=== PATIENT | male | born 1970 | race Two or more races ===

== ENCOUNTER 2016-09-22 16:15 | Emergency (ER) | payer OTHER ==
[2016-09-22 16:25] VITALS: BP 134/80
== END 2016-09-22 19:28 | disposition left against medical advice (07) ==
LOC: ER 16:15
DX: Z53.9 Procedure and treatment not carried out, unspecified reason (principal)

== ENCOUNTER 2019-11-21 16:41 | Emergency (ER) | payer SELFPAY ==
[2019-11-21] MEDS ORDERED: NORMAL SALINE 1000 ML 1,000 ML IV ONE (16:56)
--- NOTE | 2019-11-21 16:58 | ER Document Report ---
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 Denies any chest pain, shortness of breath, fevers, vomiting. History of this previously. Patient states he attempted to rehydrate with Pedialyte. ROS: See HPI All other review of systems reviewed and otherwise negative Reviewed vital signs and nursing note as charted by RN. PHYSICAL EXAM: CONSTITUTIONAL: Alert and oriented and responds appropriately to questions. Well-appearing; well-nourished HEAD: Normocephalic; atraumatic EYES: Sclerae non-icteric ENT: Normal nose; no rhinorrhea; moist mucous membranes; pharynx without lesions noted NECK: Supple without meningismus; non-tender CARD: Regular rate and rhythm; no murmurs; symmetric distal pulses RESP: Normal chest excursion without splinting or tachypnea; breath sounds clear and equal bilaterally; no wheezes, no rhonchi, no rales ABD/GI: Normal bowel sounds; non-distended; soft, non-tender; no palpable organomegaly or masses BACK: The back appears normal and is non-tender to palpation EXT: Normal ROM in all joints; non-tender to palpation; no edema; no obvious tetany or fasciculations SKIN: No acute lesions noted; skin is moist and not dry NEURO: CN 2-12 intact; 5/5 bilateral upper and lower extremity strength with sen sation intact to light touch PSYCH: The patient's mood and manner are appropriate. Grooming and personal hygiene are appropriate. TRAVEL OUTSIDE OF THE [place] IN LAST 30 DAYS: No - Related Data Allergies/Adverse Reactions: No Known Allergies Allergy (Verified 10/16/14 14:02) Past Medical History - Social History Smoking Status: Unknown if Ever Smoked Family History: Reviewed & Not Pertinent Renal/ Medical History: Denies: Hx Peritoneal Dialysis - Immunizations Hx Diphtheria, Pertussis, Tetanus Vaccination: Yes Physical Exam - Vital signs Vitals: Temp Pulse Resp BP Pulse Ox 97.6 F 84 15 139/91 H 100 11/21/19 16:42 11/21/19 16:42 11/21/19 16:42 11/21/19 16:42 11/21/19 16:42 Course - Re-evaluation Re-evalutation: 11/21/19 16:58 Given the above history and physical, we will obtain a chemistry, electrolytes, magnesium level, total CK, provide fluids, and reassess. I am concerned about the possibility of dehydration, rhabdomyolysis, and electrolyte abnormalities. 11/21/19 17:42 Labs as recorded. 2 L of fluid has been provided. Fasciculations have improved. Vital signs are stable. After 2 L of fluid I believe it is reasonable to discharge the patient home. Patient understands the importance of limited alcohol, limited caffeine, staying out of the heat, excessive hydration with electrolytes. I have requested that the patient refrain from working outside for the next 2 days. He understands my request. - Vital Signs Vital signs: Temp Pulse Resp BP Pulse Ox 97.6 F 84 15 139/91 H 100 11/21/19 16:42 11/21/19 16:42 11/21/19 16:42 11/21/19 16:42 11/21/19 16:42 - Laboratory Result Diagrams: 11/21/19 16:56 11/21/19 16:56 Laboratory results interpreted by me: 11/21/19 11/21/19 16:56 16:56 WBC 10.9 H Absolute Neuts (auto) 8.4 H Sodium 130.7 L Chloride 93 L BUN 21 H Creatinine 1.41 H Est GFR (MDRD) Non-Af 54 L Glucose 119 H Creatine Kinase 445 H Discharge - Discharge Clinical Impression: Dehydration after exertion Condition: Good Disposition: HOME, SELF-CARE Additional Instructions: Please make sure that you drink plenty of fluids. Please make sure that you refrain from working in the heat for the next 2 days as discussed. Come back immediately for any worsening muscle cramps, fever, vomiting, abdominal pain, weakness or numbness, or any other acute problems. Please limit any alcohol, caffeine, and drink electrolyte rich fluids. Forms: Return to Work
[2019-11-21 17:17] LABS: ABSOLUTE EOSINOPHILS # (AUTO) 0.1 10^3/uL (0.0-0.6); ABSOLUTE LYMPHOCYTES (AUTO) 1.8 10^3/uL (0.5-4.7); ABSOLUTE MONOCYTES (AUTO) 0.6 10^3/uL (0.1-1.4); ABSOLUTE NEUT (AUTO) 8.4 10^3/uL (1.7-8.2); BASOPHILS % (AUTO) 0.4 % (0-2); EOSINOPHILS % (AUTO) 0.8 % (0-6); HEMATOCRIT 43.4 % (37.9-51.0); HEMOGLOBIN 15.2 g/dL (13.5-17.0); LYMPHOCYTES % (AUTO) 16.2 % (13-45); MEAN CORPUSCULAR HEMOGLOBIN 33.3 pg (27.0-33.4); MEAN CORPUSCULAR VOLUME 95 fl (80-97); MONOCYTES % (AUTO) 5.9 % (3-13); PLATELET COUNT 229 10^3/uL (150-450); RED BLOOD COUNT 4.56 10^6/uL (4.35-5.55); RED CELL DISTRIBUTION WIDTH 12.4 % (11.5-14.0); SEGMENTED NEUTROPHILS % (AUTO) 76.7 % (42-78); TOTAL CELLS COUNTED % (AUTO) 100 %; WHITE BLOOD COUNT 10.9 10^3/uL (4.0-10.5)
[2019-11-21 17:31] LABS: ALBUMIN 4.7 g/dL (3.5-5.0); ALKALINE PHOSPHATASE 74 U/L (38-126); ANION GAP 14 (5-19); ASPARTATE AMINO TRANSFERASE 43 U/L (17-59); BILIRUBIN,DIRECT 0.4 mg/dL (0.0-0.4); BILIRUBIN,TOTAL 0.7 mg/dL (0.2-1.3); BLOOD UREA NITROGEN 21 mg/dL (7-20); CALCIUM 9.9 mg/dL (8.4-10.2); CARBON DIOXIDE 24 mmol/L (22-30); CHLORIDE 93 mmol/L (98-107); CREATINE KINASE 445 U/L (55-170); GLUCOSE 119 mg/dL (75-110); POTASSIUM 4.4 mmol/L (3.6-5.0); TOTAL PROTEIN 7.7 g/dL (6.3-8.2)
[2019-11-21 19:09] VITALS: BP 139/83
== END 2019-11-21 19:09 | disposition home or self-care (01) ==
LOC: ER 16:41
DX: E86.0 Dehydration (principal); M79.10 Myalgia, unspecified site
CPT/HCPCS: 99284; 96360; 96361; 36415; 82550; 83735; 85025; 80053; J7030

== ENCOUNTER 2019-12-05 09:15 | Emergency (ER) | payer SELFPAY ==
[2019-12-05 09:30] VITALS: BP 143/83
[2019-12-05 10:06] LABS: ABSOLUTE EOSINOPHILS # (AUTO) 0.2 10^3/uL (0.0-0.6); ABSOLUTE LYMPHOCYTES (AUTO) 1.7 10^3/uL (0.5-4.7); ABSOLUTE MONOCYTES (AUTO) 0.7 10^3/uL (0.1-1.4); ABSOLUTE NEUT (AUTO) 4.2 10^3/uL (1.7-8.2); BASOPHILS % (AUTO) 0.6 % (0-2); HEMATOCRIT 43.6 % (37.9-51.0); HEMOGLOBIN 15.7 g/dL (13.5-17.0); MEAN CORPUSCULAR HEMOGLOBIN 34.2 pg (27.0-33.4); MEAN CORPUSCULAR HGB CONC 35.9 g/dL (32.0-36.0); MEAN CORPUSCULAR VOLUME 95 fl (80-97); MONOCYTES % (AUTO) 10.3 % (3-13); PLATELET COUNT 249 10^3/uL (150-450); RED BLOOD COUNT 4.58 10^6/uL (4.35-5.55); RED CELL DISTRIBUTION WIDTH 12.7 % (11.5-14.0); SEGMENTED NEUTROPHILS % (AUTO) 61.1 % (42-78); TOTAL CELLS COUNTED % (AUTO) 100 %; WHITE BLOOD COUNT 6.8 10^3/uL (4.0-10.5)
--- NOTE | 2019-12-05 10:22 | ER Document Report ---
Entered by PAUL CLARK SCRIBE 12/05/19 1002 Acting as scribe for:CASSIE COLMENARES MD ED General - General Stated Complaint: CHEST,BACK PAIN Time Seen by Provider: 12/05/19 09:58 Mode of Arrival: Ambulatory Information source: Patient Notes: This 49 year old male patient with no significant past medical history presents to the ED today with complaints of left-sided chest pain that started around 0700 this morning while he was making coffee. Patient states that the pain was sharp in nature and radiates to his left shoulder and back. Pain is exacerbated with inspiration and turning his neck. Denies any nausea or diaphoresis. TRAVEL OUTSIDE OF THE [place] IN LAST 30 DAYS: No - Related Data Allergies/Adverse Reactions: No Known Allergies Allergy (Verified 10/16/14 14:02) Past Medical History - General Information source: Patient - Social History Smoking Status: Never Smoker Cigarette use (# per day): No Chew tobacco use (# tins/day): No Smoking Education Provided: No Frequency of alcohol use: Occasional Drug Abuse: None Lives with: Spouse/Significant other Family History: Reviewed & Not Pertinent Patient has suicidal ideation: No Patient has homicidal ideation: No Past Surgical History: Reports: Other - Left retinal scar tissue removal in 2010, right corneal repair as a kid - Immunizations Hx Diphtheria, Pertussis, Tetanus Vaccination: Yes Review of Systems - Review of Systems Constitutional: See HPI. denies: Diaphoresis EENT: No symptoms reported Cardiovascular: See HPI, Chest pain Respiratory: No symptoms reported Gastrointestinal: See HPI. denies: Nausea Genitourinary: No symptoms reported Male Genitourinary: No symptoms reported Musculoskeletal: See HPI, Back pain, Joint pain Skin: No symptoms reported Hematologic/Lymphatic: No symptoms reported Neurological/Psychological: No symptoms reported -: Yes All other systems reviewed and negative Physical Exam - Vital signs Vitals: Temp Pulse Resp BP Pulse Ox 98.4 F 73 18 143/83 H 97 12/05/19 09:25 12/05/19 09:25 12/05/19 09:25 12/05/19 09:25 12/05/19 09:25 - General General appearance: Appears well, Alert In distress: None - HEENT Head: Normocephalic, Atraumatic Eyes: Normal Pupils: PERRL - Respiratory Respiratory status: No respiratory distress Chest status: Nontender Breath sounds: Normal Chest palpation: Normal - Cardiovascular Rhythm: Regular Heart sounds: Normal auscultation Murmur: No Friction rub: No Gallop: None auscultated - Abdominal Inspection: Normal Distension: No distension Bowel sounds: Normal Tenderness: Nontender - Abdomen soft Organomegaly: No organomegaly - Back Back: Normal, Nontender - Extremities General upper extremity: Normal inspection General lower extremity: Normal inspection. No: Edema - Neurological Neuro grossly intact: Yes - Psychological Associated symptoms: Normal affect, Normal mood - Skin Skin Temperature: Warm Skin Moisture: Dry Skin Color: Normal Course - Re-evaluation Re-evalutation: 12/05/19 13:06 Patient was complaining of a pleuritic type left-sided chest pain and the d- dimer was only slightly below the cutoff for positive. CTA chest was done and is negative. Second troponin is pending at this time. - Vital Signs Vital signs: Temp Pulse Resp BP Pulse Ox 98.1 F 73 18 143/83 H 97 12/05/19 10:01 12/05/19 09:25 12/05/19 09:25 12/05/19 09:25 12/05/19 10:04 - Laboratory Result Diagrams: 12/05/19 09:59 12/05/19 09:59 Laboratory results interpreted by me: 12/05/19 12/05/19 12/05/19 09:59 09:59 09:59 MCH 34.2 H BUN 26 H Creatine Kinase 459 H CK-MB (CK-2) 4.68 H - Diagnostic Test Radiology reviewed: Image reviewed, Reports reviewed - EKG Interpretation by Ut EKG shows normal: Sinus rhythm, Stryker, Intervals, QRS Complexes, ST-T Waves Rate: Normal - 71 Rhythm: NSR Discharge - Discharge Clinical Impression: Muscular chest pain, Renal insufficiency, mild, Elevated blood pressure reading Condition: Stable Disposition: HOME, SELF-CARE Additional Instructions: Chest Wall Pain: Your chest pain has been diagnosed as coming from the chest wall. This is often caused by straining the muscles or joints in the chest during physical activity, direct trauma, coughing, or vigorous vomiting. Persons with arthritis are especially prone to this type of pain, due to inflammation of the cartilage joints near the breast bone. Occasionally, no cause can be found. Rest from strenuous physical activity. This kind of chest pain is usually made worse by movement of the chest. Depending on the symptoms, we may prescribe medicine for pain, muscle relaxation, and antiinflammatory effects. If the pain is new, and seems to be due to muscle strain, cold packs can help. Otherwise, apply gentle warmth to the painful area for 15 minutes every hour or two. You should contact the doctor immediately if things change. Further dada luation is needed if you develop a fever or cough, if the nature of the pain changes, or if you become short of breath. High Blood Pressure: When your blood pressure was taken today it was elevated. Pre-hypertension/Hypertension: The patient has been informed that they may have pre-hypertension or Hypertension based on a blood pressure reading in the emergency department. I recommend that the patient call the primary care provider listed on their discharge instructions or a physician of their choice this week to arrange follow up for further evaluation of possible pre- hypertension or Hypertension. Sometimes, stress or illness causes a temporary elevation of your blood pressure. We suggest that you get your blood pressure measured three more times during the next few days to see if this is more than a temporary abnormality. If your blood pressure is greater than 150/90 on each occasion, you must have treatment. Some simple things you can do to help are: If you have blood pressure medicine but aren't using it regularly, start taking it again. Get some aerobic exercise for at least 20 minutes on a daily basis. (See your doctor before beginning a new exercise program.) Eat a low-fat diet. Lose excess weight. Avoid salty foods and avoid adding salt to any of the foods you eat. Avoid diet pills, decongestants, "energizing" herbs, and other medicines that elevate blood pressure. If left untreated, hypertension greatly enhances your risk for developing heart disease and strokes. Please don't ignore this problem. Kidney Function Abnormality: Your evaluation has shown an abnormality of your kidney function. An abnormal kidney function test can be caused by dehydration, acute kidney damage, blood vessel disease (such as with diabetes or chronic high blood pressure), or just old age. If the abnormality is caused by an acute disease, it may reverse completely. Have a repeat test. If it's normal, don't worry about your kidneys. If you have a chronic kidney problem, you must be careful with medicines and medical tests. Be sure any doctor who prescribes medicine or orders tests knows that your kidney tests have been abnormal. Some medicines must have the dose reduced, other medicines must be avoided. If the doctor has recommended further workup, be sure to follow up as instructed. Call us if you have new flank pain, vomiting, confusion, or if you're unable to urinate. I reviewed several ER visits over the last few years and found that you have been running borderline high blood pressure and showing some impaired kidney function on all of those visits. Take the medications as prescribed for muscle relaxation. Take Tylenol for pain as needed. Be sure to drink plenty of fluids throughout the day in the evening every day. Follow-up with a local primary care provider for further evaluation of your blood pressure and kidney function. RETURN TO THE EMERGENCY ROOM IF ANY NEW OR WORSENING SYMPTOMS. Prescriptions: Cyclobenzaprine HCl 5 mg PO Q8 PRN #15 tablet PRN Reason: I personally performed the services described in the documentation, reviewed and edited the documentation which was dictated to the scribe in my presence, and it accurately records my words and actions.
[2019-12-05 10:39] LABS: ALBUMIN 4.5 g/dL (3.5-5.0); ALKALINE PHOSPHATASE 75 U/L (38-126); ANION GAP 8 (5-19); ASPARTATE AMINO TRANSFERASE 38 U/L (17-59); BILIRUBIN,DIRECT 0.3 mg/dL (0.0-0.4); BILIRUBIN,TOTAL 0.8 mg/dL (0.2-1.3); BLOOD UREA NITROGEN 26 mg/dL (7-20); CARBON DIOXIDE 26 mmol/L (22-30); CHLORIDE 104 mmol/L (98-107); CREATINE KINASE 459 U/L (55-170); GLUCOSE 99 mg/dL (75-110); POTASSIUM 4.8 mmol/L (3.6-5.0)
--- NOTE | 2019-12-05 10:40 | RADIOLOGY REPORT (SQ) ---
EXAM DESCRIPTION: CHEST SINGLE VIEW IMAGES COMPLETED DATE/TIME: 12/05/2019 10:25 am REASON FOR STUDY: chest pain COMPARISON: None. EXAM PARAMETERS: NUMBER OF VIEWS: One view. TECHNIQUE: Single frontal radiographic view of the chest acquired. RADIATION DOSE: NA LIMITATIONS: None. FINDINGS: LUNGS AND PLEURA: No opacities, masses or pneumothorax. No pleural effusion. MEDIASTINUM AND HILAR STRUCTURES: No masses. Contour normal. HEART AND VASCULAR STRUCTURES: Heart normal in size. Normal vasculature. BONES: No acute findings. HARDWARE: None in the chest. OTHER: No other significant finding. IMPRESSION: NO ACUTE RADIOGRAPHIC FINDING IN THE CHEST. TECHNICAL DOCUMENTATION: JOB ID: [id number] 2010 [employer]- All Rights Reserved Reading location - IP/workstation name: [email or web address]
[2019-12-05 10:50] LABS: CREATINE KINASE MB 4.68 ng/mL (<4.55)
[2019-12-05 11:01] LABS: TROPONIN I < 0.012 ng/mL
[2019-12-05] MEDS ORDERED: NORMAL SALINE 1000 ML 1,000 ML IV ONE (11:30)
[2019-12-05] MEDS ORDERED: KETOROLAC TROMETHAMINE INJ/PF 30 MG/1 ML SDV IV ONE (11:30)
--- NOTE | 2019-12-05 12:48 | RADIOLOGY REPORT (SQ) ---
EXAM DESCRIPTION: CTA CHEST IMAGES COMPLETED DATE/TIME: 12/05/2019 12:37 pm REASON FOR STUDY: Left pleuritic chest pain with elevated d-dimer COMPARISON: Chest x-ray done earlier the same day. TECHNIQUE: CT scan of the chest performed using helical scanning technique with dynamic intravenous contrast injection. Images reviewed with lung, soft tissue and bone windows. Reconstructed coronal and sagittal MPR images reviewed. Additional 3 dimensional post-processing performed to develop Maximal Intensity Projection images (AZ P). All images stored on PACS. All CT scanners at this facility use dose modulation, iterative reconstruction, and/or weight based d osing when appropriate to reduce radiation dose to as low as reasonably achievable (ALARA). [facility]: Dose Right [facility]: CareDose [facility]: Dose Right [facility]: Teradose 4D [facility]: [email or web address] CONTRAST TYPE AND DOSE: contrast/concentration: Isovue 350.00 mmol/ml; Total Contrast Delivered: 68. 0 ml; Total Saline Delivered: 65.0 ml Contrast bolus optimized for the pulmonary arteries. Not diagnostic for the aorta. RENAL FUNCTION: BUN 26, creatinine 1.16 RADIATION DOSE: CT Rad equipment meets quality standard of care and radiation dose reduction techniq ues were employed. CTDIvol: 7.5 - 15.1 mGy. DLP: 606 mGy-cm. . LIMITATIONS: None. FINDINGS: LUNGS AND PLEURA: No masses, infiltrates, or pneumothorax. No pleural effusions or pleura l calcifications. AORTA AND GREAT VESSELS: No aneurysm. Contrast bolus not optimized for the aorta. HEART: No pericardial effusion. No significant coronary artery calcifications. PULMONARY ARTERIES: No emboli visualized in the main pulmonary arteries or the segmental branches. HILAR AND MEDIASTINAL STRUCTURES: No identified masses or abnormal nodes. HARDWARE: None in the chest. UPPER ABDOMEN: No significant findings. Limited exam. THYROID AND OTHER SOFT TISSUES: No masses. No adenopathy. BONES: No acute or significant finding. 3D MIPS: Confirm above findings. OTHER: No other significant finding. IMPRESSION: NORMAL CTA OF THE CHEST. NO PULMONARY EMBOLI. COMMENT: Quality ID # [id number]: Final reports with documentation of one or more dose reduction techniques (e.g., Automated exposure control, adjustment of the mA and/or kV according to patient size, use of iterative reconstruction technique) TECHNICAL DOCUMENTATION: JOB ID: [id number] [employer]- All Rights Reserved Reading location - IP/workstation name: [email or web address]
--- NOTE | 2019-12-05 19:08 | EKG REPORT ---
SEVERITY:- NORMAL ECG - SINUS RHYTHM : Confirmed by: Mart Greer 05-Dec-2019 19:08:15
== END 2019-12-05 14:24 | disposition home or self-care (01) ==
LOC: ER 09:15
DX: R07.89 Other chest pain (principal); M54.9 Dorsalgia, unspecified; M25.512 Pain in left shoulder; N28.9 Disorder of kidney and ureter, unspecified; R03.0 Elevated blood-pressure reading, without diagnosis of hypertension
CPT/HCPCS: 93005; 99285; 96361; 96374; 36415; 82553; 82550; 85025; 80053; 84484; 85379; 71045; 71275; 93010; J1885; J7030